=== PATIENT | male | born 1975 | race Caucasian/White ===

== ENCOUNTER 2016-06-28 12:12 | Emergency (ER) | payer BC ==
[~2016-06-28 12:12] MED LIST: TYLENOL #31 TAB PO
[2016-06-28] MEDS ORDERED: LEXAPRO5 M1 (12:15)
[2016-06-28] MEDS ORDERED: CLONAZEPAM0.25 MG PO (12:15)
[2016-06-28] MEDS ORDERED: CYCLOBENZAPRINE5 M1 PO (12:46)
[2016-06-28] MEDS ORDERED: NAPROSYN500 M1 PO (12:46)
== END 2016-06-28 12:57 ==
LOC: EDMED 12:12
DX: S39.012A Strain of muscle, fascia and tendon of lower back, initial encounter (principal); F17.220 Nicotine dependence, chewing tobacco, uncomplicated; X50.0XXA Overexertion from strenuous movement or load, initial encounter; Y92.69 Other specified industrial and construction area as the place of occurrence of the external cause; Y99.0 Civilian activity done for income or pay